=== PATIENT | female | born 1975 | race Caucasian/White ===

== ENCOUNTER 2022-11-10 14:31 | Emergency (ER) | payer SELFPAY ==
[2022-11-10] MEDS ORDERED: Sodium Chloride 0.9% 1,000 ML IV STA (15:04)
[2022-11-10] MEDS ORDERED: Sodium Chloride 0.9% 10 ML Syringe FLUSH PRN ×2 (15:04→16:18)
[2022-11-10 15:34] LABS: BASOPHILS ABSOLUTE AUTO 0.04 K/mm3 (0.01-0.08); BASOPHILS PERCENT AUTO 0.4 % (0.1-1.2); EOSINOPHILS ABSOLUTE AUTO 0.17 K/mm3 (0.04-0.36); EOSINOPHILS PERCENT AUTO 1.6 (0.7-5.8); HEMOGLOBIN 13.7 gm/dl (11.2-15.7); IMMATURE GRAN ABSOLUTE AUTO 0.02 K/mm3 (0.00-0.10); IMMATURE GRAN PERCENT AUTO 0.2 % (<=1.0); LYMPHOCYTES ABSOLUTE AUTO 2.45 K/mm3 (1.18-3.74); LYMPHOCYTES PERCENT AUTO 22.6 % (19.3-51.7); MEAN CORPUSCULAR HEMOGLOBIN 32.1 pg (25.6-32.2); MEAN CORPUSCULAR HGB CONC 34.3 g/dl (32.2-35.5); MEAN CORPUSCULAR VOLUME 93.7 fl (79.4-94.8); MEAN PLATELET VOLUME 9.9 fl (9.4-12.3); MONOCYTES ABSOLUTE AUTO 0.95 K/mm3 (0.24-0.36); MONOCYTES PERCENT AUTO 8.8 % (4.7-12.5); NEUTROPHILS ABSOLUTE AUTO 7.22 K/mm3 (1.56-6.13); NEUTROPHILS PERCENT AUTO 66.4 % (34.0-71.1); PLATELET COUNT,PLT 301 K/mm3 (182-369); RED BLOOD CELL COUNT 4.27 M/mm3 (3.98-5.22); WHITE BLOOD CELL COUNT,WBC 10.85 K/mm3 (3.98-10.04)
[2022-11-10 15:40] LABS: INR 2.22; PROTHROMBIN TIME 22.4 SECONDS (9.7-12.0)
[2022-11-10 15:44] LABS: A/G RATIO 0.8 (1-2); ALANINE AMINOTRANSFERASE,ALT 37 U/L (14-59); ALBUMIN 3.6 g/dl (3.4-5.0); ALKALINE PHOSPHATASE 73 U/L (46-116); ANION GAP 13.7 (5-15); ASPARTATE AMNIOTRANSFERASE,AST 26 U/L (15-37); BILIRUBIN TOTAL 0.3 mg/dL (0.2-1.0); BLOOD UREA NITROGEN,BUN 11 mg/dL (7-18); CALCIUM 9.2 mg/dL (8.5-10.1); CARBON DIOXIDE,CO2 24 mEq/L (21-32); CHLORIDE,CL 101 mEq/L (98-107); EST CRCL DRUG DOSING (CG) 56.19 mL/min; ESTIMATED GFR 71 mL/min (>60); GLUCOSE RANDOM 124 mg/dL (70-99); POTASSIUM,K 3.7 mEq/L (3.5-5.1); PROTEIN TOTAL,TP 8.1 g/dl (6.4-8.2); SODIUM,NA 135 mEq/L (136-145)
[2022-11-10 15:51] LABS: C-REACTIVE PROTEIN < 0.2 mg/dL (<1.0)
[2022-11-10] MEDS ORDERED: Iopamidol 755 Mg/ML 100 ML Bottle IVPUSH ONE (16:18)
[2022-11-10] MEDS ORDERED: Sodium Chloride 0.9% 100 ML IV SCH (16:30)
== END 2022-11-10 19:30 | disposition home or self-care (01) ==
LOC: JD.ED 14:31
DX: K92.2 Gastrointestinal hemorrhage, unspecified (principal); F17.210 Nicotine dependence, cigarettes, uncomplicated; Z88.1 Allergy status to other antibiotic agents; Z88.5 Allergy status to narcotic agent
CPT/HCPCS: 36415; 74177; 80053; 80307; 85025; 85610; 85730; 86140; 86850; 86900; 86901; 96360; 96361; 99285; J3490; J7030; 99284